=== PATIENT | male | born 1995 | race Caucasian/White ===

== ENCOUNTER 2019-11-27 11:50 | Emergency (ER) | payer OTHER ==
[~2019-11-27] VITALS: Ht 185.4 cm; Wt 100.0 kg
[2019-11-27 11:56] VITALS: BP 156/95
[2019-11-27] MEDS ORDERED: TETANUS, DIPHTHERIA, PERTUSSIS VAC/PF 0.5ML (>7YR OLD) IM ONE (12:00)
[2019-11-27] MEDS ORDERED: LIDOCAINE HCL/EPINEPHRINE 1%-EPI 1:100,000 20 ML VIAL INFIL NR (12:20)
[2019-11-27] MEDS: LIDOCAINE 1%/EPI 1:100,000 10 ML VIAL IJ ONE ×2 (12:26→12:27)
[2019-11-27] MEDS ORDERED: ACETAMINOPHEN 325MG TABLET PO ONE (12:45)
== END 2019-11-27 13:11 | disposition home or self-care (01) ==
LOC: ER 11:50
DX: S01.01XA Laceration without foreign body of scalp, initial encounter (principal); X99.1XXA Assault by knife, initial encounter; Y93.89 Activity, other specified; Y92.89 Other specified places as the place of occurrence of the external cause
CPT/HCPCS: 12014; 90471; 90715; 99283; J3490